=== PATIENT | male | born 1945 | race Caucasian/White ===

== ENCOUNTER → 2019-02-06 | Outpatient (CLI) | payer MEDICARE, BC, OTHER | END | disposition home or self-care (01) | LOC: HKI 14:24 | DX: M25.561 Pain in right knee (principal); G62.9 Polyneuropathy, unspecified; I10 Essential (primary) hypertension; I25.10 Atherosclerotic heart disease of native coronary artery without angina pectoris; Z98.61 Coronary angioplasty status | CPT/HCPCS: 73564 ==

== ENCOUNTER → 2019-02-12 | Outpatient (CLI) | payer MEDICARE, BC | END | disposition home or self-care (01) | LOC: HKI 14:27 | DX: M13.861 Other specified arthritis, right knee (principal) | CPT/HCPCS: G0463 ==